=== PATIENT | male | born 1995 | race African-American/Black ===

== ENCOUNTER 2021-11-01 13:25 | Emergency (ER) | payer SELFPAY ==
[~2021-11-01] VITALS: Ht 162.6 cm; Wt 74.8 kg
--- NOTE | 2021-11-01 13:30 | NUR ---
CAMRON 85Devin FROM DETENTION FOR SOB. OXYGEN SATURATION IN ROOM AIR IS 100%. IN ROOM AIR. RESPIRATION REGULAR AND UNLABORED. WILL CONTINUE TO MONITOR THE PATIENT.
[2021-11-01] MEDS ORDERED: ALBUTEROL SULFATE 8 GM HFA.AER.AD IH ONE (15:30)
--- NOTE | 2021-11-01 15:30 | NUR ---
Patient discharged in stable condition with [employer] officers. Written and verbal after care instructions given. The patient and the officers verbalizes understanding of instruction.
[2021-11-01 15:46] VITALS: BP 116/64
== END 2021-11-01 15:47 ==
LOC: ER 13:27
DX: J45.909 Unspecified asthma, uncomplicated (principal); R06.00 Dyspnea, unspecified; Z60.2 Problems related to living alone